=== PATIENT | male | born 1950 | race Caucasian/White ===

== ENCOUNTER 2024-12-16 18:25 | Observation (INO) | payer OTHER, SELFPAY ==
[2024-12-16] VITALS (52 sets, daily range): BP systolic 105–231; BP diastolic 48–107; PULSE 57–123; RESP 6–33; TEMP 36.8; O2SAT 95–100
--- NOTE | 2024-12-16 18:15 | RT.EKG_ITS ---
APPROVED REPORT Exam: Resting ECG Reason for Exam: stroke like symptoms Patient Location: E HR:66 bpm ECG Measurements Heart Rate 66 AXIS RI 173 P 51 QRSd 96 QRS -23 QT 418 T 2 QTc 438 Conclusion Sinus rhythm...normal P axis, V-rate 60- 99 LVH
--- NOTE | 2024-12-16 18:32 | W.ED.GENAD ---
Discharge Plan Disposition Patient Disposition: Admit to [facility] Condition: Critical Discharge Details Clinical Impression: Hypertensive emergency, Brain TIA Primary Care Provider: Unknown,Unknown ED Provider: Rajan Goyal Home Meds and New Rx's Prescriptions: No Action amlodipine 10 mg tablet 10 mg PO DAILY lisinopril-hydrochlorothiazide 20-25 mg tablet 1 tab PO DAILY simvastatin 40 mg tablet 40 mg PO DAILY ascorbic acid (vitamin C) 500 mg capsule 500 mg PO DAILY Discharge Data Discharge Physician: Rajan Goyal [facility] General Date/Time Provider Initiated Documentation: 12/16/24 18:32. HPI Narrative: Patient presents to the emergency department after he was last seen well at 2:30 PM in the afternoon approximately 3-1/2 to 4 hours from now presenting with expressive aphasia. Patient just recently moved to the area and is a [place] followed at the [facility]. According to his brother who was the one who picked him up at noon and left him at 230 he was doing completely fine. The brother states that he has a history of hypertension lives alone and he has not been taking his antihypertensive medicines. Brother reports that when they saw him he could understand what they were saying but he could not answer the questions appropriately. Related Data Home Medications ?Medication ?Instructions ?Recorded ?Confirmed amlodipine 10 mg tablet 10 mg PO DAILY 12/16/24 12/16/24 ascorbic acid (vitamin C) 500 mg 500 mg PO DAILY 12/16/24 12/16/24 capsule lisinopril 20 1 tab PO DAILY 12/16/24 12/16/24 mg-hydrochlorothiazide 25 mg tablet simvastatin 40 mg tablet 40 mg PO DAILY 12/16/24 12/16/24 Allergies Allergy/AdvReac Type Severity Reaction Status Date / Time No Known Allergies Allergy Unverified 12/16/24 18:36 Review of Systems Narrative: Review of Systems: Constitutional: No fevers, chills, sweats Eye: No recent visual problems ENT: No ear pain, nasal congestion, sore throat Respiratory: No shortness of breath, cough Cardiovascular: No Chest pain, palpitations, syncope Gastrointestinal: No nausea, vomiting, diarrhea Genitourinary: No hematuria Adolfo/Lymph: Negative for bruising tendency, swollen lymph glands Endocrine: Negative for excessive thirst, excessive hunger Musculoskeletal: No back pain, neck pain, joint pain, muscle pain, decreased range of motion Integumentary: No rash, pruritus, abrasions Psychiatric: No anxiety, depression Exam Narrative Exam Narrative: Exam; vitals signs as reported above normal Constitutional; In no acute distress, afebrile General: cooperative, healthy appearing, comfortable and no acute distress HEENT: Head: normal to inspection, no palpable skull fracture and normocephalic atraumatic Eyes: : appearance normal, both eyes and all related structures EOM intact bilaterally Pupils: PERRL : conjunctiva normal Direct ophthalmoscopy: normal light reflex, normal conjunctiva, normal visual acuity Ears: Normal TM, normal external canal Nose: normal no rhinorreha Neck no JVD, supple non tender Neck: normal visual inspection, full ROM and no lymphadenopathy Chest: normal inspection of the chest Respiratory : normal respiratory effort and able to speak in complete sentences no wheezing no rales Cardio Rate: regular rate, rhythm: regular rhythm normal heart sounds S1 and S2 no murmurs, gallops, or rubs GI : normal to inspection, normal bowel sounds, soft, non tender, non distended, no organomegaly Back/Spine/ no CVA tenderness Thoracic/Lumbar Spine: no tenderness or deformities Skin no rashes or lesions Neuro: patient alert oriented x 4 and no meningeal signs, Cranial Nerves: CN's II-XI intact bilaterally, Cognition: normal cognition, Speech: Patient with expressive aphasia who answers correctly with simple words but cannot elaborate complete sentences and answers with incoherent words l, Gait: normal gait, Depp tendon reflexes normal 2+ muscle strength 5/5 bilaterally NIH score: 2 Course Patient presents to the emergency department with a hypertensive emergency with a blood pressure of 231/120 initially and expressive aphasia. He could only answer with simple words. Patient has a history of a large ischemic stroke 10 years ago left him with some encephalomalacia almost complete the right cerebral hemisphere with surprisingly no residual neurological deficit. He was rushed to the CT angiogram which shows a high-grade stenosis of the right middle cerebral artery which would be the culprit of the stroke he had 10 years ago. The left hemisphere does not show any acute abnormality. He was treated aggressively with nicardipine drip to get the mean arterial pressure 100. Reevaluation(s) Initial Evaluation: Patient improving after the nicardipine drip he is able to express himself better Time: 19:30 Reevaluation: Patient is back to baseline with a mean arterial pressure in the 90s with a BP of 144/82 and his NIH score now is 0 Time: 21:00 Consultations Consultation #1: Teleneurology consultation who agreed the patient had a TIA secondary to hypertensive emergency that the focus now is to control his blood pressure and also do an MRI carotid ultrasound and since he had an episode of hematuria workup the hematuria before starting Plavix and aspirin for long-term therapy as well as aggressive antihypertensive therapy. We have also consulted the [facility] system that agreed the patient could stay here in the ICU because of the nicardipine drip needs to be transferred to the [facility] tomorrow morning Time: 21:00 Medical Decision Making MDM: Summary: Patient presents to the emergency department with a hypertensive emergency with a blood pressure of 231/120 initially and expressive aphasia. He could only answer with simple words. Patient has a history of a large ischemic stroke 10 years ago left him with some encephalomalacia almost complete the right cerebral hemisphere with surprisingly no residual neurological deficit. He was rushed to the CT angiogram which shows a high-grade stenosis of the right middle cerebral artery which would be the culprit of the stroke he had 10 years ago. The left hemisphere does not show any acute abnormality. He was treated aggressively with nicardipine drip to get the mean arterial pressure 100. After the blood pain was under control the patient returned back to normal. Teleneurology consultation agrees that the patient had a hypertensive emergency with a TIA and was improving. He had an episode of hematuria and urinalysis shows hematuria and needs to be worked up before he is in the aggregated which recommended neurology as a long-term antiplatelet therapy with Plavix and aspirin. 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 He will be in the ICU continue with the nicardipine drip and then he will be transferred to the [facility] in the morning Data Review Analysis All the data on this patient was reviewed by me including laboratory and imaging studies as well as bedside studies performed by me Independent review of Studies Imaging As reported above Lab: As reported above Risk Stratification: Patient with a hypertensive emergency however CTA was improved so will be admitted to the unit Differential Diagnosis: 1. Hypertensive emergency 2. Transient ischemic attack 3. Acute ischemic stroke 4. 5. Consultants: Consulted with teleneurology and the [facility] ICU system as well as our hospitalist here will admit the patient to the ICU Shared disposition: Patient understands disposition and for follow accordingly family are aware Impression: Medical Records Medical records reviewed: Yes I reviewed the patient's medical records. Imaging Data Radiologic Study: Attestation: I personally reviewed and interpreted this imaging study as follows: Imaging: CT Scan Radiologist's impression: cession No. : [id number] Creator : Jake Matos Dictator : Jake Matos Electrophysiology Technician : Automobile Radio Repairer : Jake Matos Approver2 : Report Date : 12/16/2024 20:05:25 Exam(s) CT BRAIN NECK CTA EXAM: CT BRAIN NECK CTA CLINICAL HISTORY: aphasia. TECHNIQUE: Imaging Protocol: Axial CT angiography was performed with multi-slice acquisition and multi-planar and/or 3D reconstructions. CONTRAST MATERIAL: Intravenous: Omnipaque 350 Contrast volume:structured data in ml COMPARISON: No exams were available for comparison FINDINGS: CTA Neck W: Aortic arch anatomy: The aortic arch anatomy is conventional and there is no significant stenosis at the origin of the great vessels off of the aortic arch. No intimal flap evident. Anterior circulation: Both common carotid arteries ascend with normal luminal diameters. There is no significant atherosclerotic plaque at the left carotid bifurcation and proximal left ICA and the left ICA in the upper neck is nicely patent as well as within the skull base-left carotid canal. There is partially calcified plaque at the right carotid bulb and proximal right ICA. Amount of stenosis at this level is estimated at approximately 30 percent. Above this level the right internal carotid artery in the upper neck is mildly tortuous but patent and also patent within the skull base-right carotid canal. Posterior circulation: Both vertebral arteries originate in conventional fashion off of the subclavian arteries and there is no obvious significant stenosis at the origin of the vertebral arteries. Both vertebral arteries exhibit normal luminal diameters within the foramen transversarium. No evidence of intraluminal thrombus nor dissection of the vertebral arteries. Both vertebral arteries contribute to the formation of the basilar artery at the skull base. CTA Brain W: Anterior circulation: Both internal carotid arteries are patent in the skull base-carotid canals as well as within the cavernous sinuses. The supraclinoid aspects of the ICAs are patent. Both A1 segments are patent as are the anterior cerebral arteries and there is no evidence of aneurysm at the level of the anterior communicating artery. There is a high-grade stenosis (over 90 percent stenosis) measuring 4-5 mm length in the right middle cerebral artery just distal to its origin. Left middle cerebral artery is patent without significant stenosis nor intraluminal thrombus. Posterior circulation: The basilar artery ascends with normal luminal diameter.. Distally it gives off patent bilateral superior cerebellar arteries. Above this level the basilar artery terminates as patent bilateral posterior cerebral arteries. There is no evidence of aneurysm at the tip of the basilar artery nor elsewhere in the [id number]. CT BRAIN: There is no evidence of intracranial hemorrhage. However, there is a large area of abnormal hypodensity-encephalomalacia in the territory of the right middle cerebral artery in of all vein right frontal, temporal, and parietal lobes, consistent with prior nonhemorrhagic infarction and most probably related to what is described above in the right middle cerebral artery. There is no prominent associated mass effect nor shift of midline structures. There is abundant bilateral periventricular hypodensity consistent with chronic small vessel disease also evident. No evidence of obvious cerebellar infarct nor lacunar infarcts in the maxx and midbrain. IMPRESSION: 1. High-grade critical over 90 percent 4 mm length stenosis in the proximal aspect of the right middle cerebral artery. Large area of nonhemorrhagic infarct in the right temporoparietal and frontal regions, most probably not acute although recommend follow-up MRI with diffusion imaging. No evidence of intracranial hemorrhage. 2. No significant stenosis in the left carotid artery in the neck. Mild stenosis at the right carotid bifurcation-proximal right ICA, estimated at approximately 30 percent. 3. Patent vertebral arteries in the neck and patent posterior intracranial circulation. 4. Recommend MRI with diffusion imaging to determine if there is any acute on chronic ischemic damage here. RADIATION DOSE DELIVERED: 1123.36 mGy.cm Total DLP DATA REPOSITORY: All CT scans at this facility are submitted to the National Radiology Data Registry (NRDR) Dose Index Registry (DIR) with the [employer] (ACR). RADIATION OPTIMIZATION: All CT scans at this facility use at least one of these dose optimization techniques: automated exposure control; mA and/or kV adjustment per patient size (includes targeted exams where dose is matched to clinical indication); or iterative reconstruction. Lab Data Lab results reviewed: Yes I reviewed the patient's lab results. ECG Data Attestation: I personally reviewed and interpreted this ECG (s) as follows: Prior ECG tracings: not available for review Interpretation: Normal sinus rhythm heart rate of 66 left axis deviation with mild criteria for left ventricular hypertrophy no acute ST-T changes Quality:SDOH Health Related Social Needs: No Data to Display Critical Care Time Critical Care Time Critical Care Time: Yes Total Critical Care Time: 45 Attestation: 45 minutes of critical care time pending deterioration of the neurological system and hypertensive emergency PFSH All Active Problems Brain TIA (Acute) Hypertensive emergency (Acute) Social History Smoking/Tobacco Use Status: Never Smoking risk assessment performed?: Yes Alcohol Intake: never Housing: house Do you feel safe at home: Yes Do you feel safe in your relationship?: Yes Vital Signs & Lab Results Vital Signs Most Recent Vital Signs: Most Recent Vital Signs Temp Pulse Resp BP Pulse Ox 36.8 C 88 23 156/72 H 95 12/16/24 18:29 12/16/24 22:42 12/16/24 22:43 12/16/24 22:42 12/16/24 20:31 Point of Care Results Nursing Point of Care Results: Finger Stick Blood Glucose 94 (70 - 120) 12/16/24 19:49 Lab Results 12/16/24 18:38 12/16/24 20:00 Blood Type / Crossmatch: No Data to Display Complete Blood Count: White Blood Count 8.84 10^3/uL (4.4-10.8) 12/16/24 18:38 Red Blood Count 5.09 10^6/uL (4.36-5.78) 12/16/24 18:38 Hemoglobin 15.9 g/dL (13.5-17.5) 12/16/24 18:38 Hematocrit 46.5 % (40.0-50.0) 12/16/24 18:38 Platelet Count 10^3/uL (130-400) 12/16/24 18:38 Complete Metabolic Panel: Sodium 137 mmol/L (136-145) 12/16/24 20:00 Potassium 3.7 mmol/L (3.5-5.1) 12/16/24 20:00 Chloride 100 mmol/L (98-107) 12/16/24 20:00 Carbon Dioxide 28.2 mmol/L (21.0-32.0) 12/16/24 20:00 BUN 15 mg/dL (7-18) 12/16/24 20:00 Creatinine 0.9 mg/dL (0.70-1.30) 12/16/24 20:00 Est GFR (CKD-EPI 2020) 90.74 (mL/min/1.73m2) 12/16/24 20:00 Magnesium 1.9 mg/dL (1.8-2.4) 12/16/24 20:00 Calcium 9.9 mg/dL (8.5-10.1) 12/16/24 20:00 Albumin 4.8 g/dL (3.4-5.0) 12/16/24 20:00 Glucose 110 mg/dL (74-106) H 12/16/24 20:00 Liver Function Panel: Alanine Aminotransferase (ALT/SGPT) 27 U/L (16-63) 12/16/24 20:00 Aspartate Amino Transf (AST/SGOT) 24 U/L (15-37) 12/16/24 20:00 Coagulation Panel: No Data to Display Cardiac Panel: Troponin I 19 ng/L (<or=76) 12/16/24 Arterial Blood Gas: No Data to Display Venous Blood Gas: No Data to Display Pancreas Panel: No Data to Display Thyroid Panel: No Data to Display Infectious Disease: No Data to Display Blood Cultures: No Data to Display Toxicology Panel: No Data to Display
--- NOTE | 2024-12-16 18:53 | DI.CT_ITS ---
Exam(s) CT BRAIN NECK CTA EXAM: CT BRAIN NECK CTA CLINICAL HISTORY: aphasia. TECHNIQUE: Imaging Protocol: Axial CT angiography was performed with multi-slice acquisition and mu lti-planar and/or 3D reconstructions. CONTRAST MATERIAL: Intravenous: Omnipaque 350 Contrast volume:structured data in ml COMPARISON: No exams were available for comparison FINDINGS: CTA Neck W: Aortic arch anatomy: The aortic arch anatomy is conventional and there is no significant stenosis at the origin of the great vessels off of the aortic arch. No intimal flap evident. Anterior circulation: Both common carotid arteries ascend with normal luminal diameters. There is no significant atherosclerotic plaque at the left carotid bifurcation and proximal left ICA and the left ICA in the upper neck is nicely patent as well as within the skull base-left carotid can al. There is partially calcified plaque at the right carotid bulb and proximal right ICA. Amount of sten osis at this level is estimated at approximately 30 percent. Above this level the right internal car otid artery in the upper neck is mildly tortuous but patent and also patent within the skull base-rig ht carotid canal. Posterior circulation: Both vertebral arteries originate in conventional fashion off of the subclavian arteries and there is no obvious significant stenosis at the origin of the vertebral arteries. Both vertebral arteries exhibit normal luminal diameters within the foramen transversarium. No evidence of intraluminal thrombus nor dissection of the vertebral arteries. Both vertebral arteries contribute to the formation of the basilar artery at the skull base. CTA Brain W: Anterior circulation: Both internal carotid arteries are patent in the skull base-carotid canals as well as within the cave rnous sinuses. The supraclinoid aspects of the ICAs are patent. Both A1 segments are patent as are the anterior cer ebral arteries and there is no evidence of aneurysm at the level of the anterior communicating artery . There is a high-grade stenosis (over 90 percent stenosis) measuring 4-5 mm length in the right middle cerebral artery just distal to its origin. Left middle cerebral artery is patent without significan t stenosis nor intraluminal thrombus. Posterior circulation: The basilar artery ascends with normal luminal diameter.. Distally it gives off patent bilateral sup erior cerebellar arteries. Above this level the basilar artery terminates as patent bilateral posterior cerebral arteries. There is no evidence of aneurysm at the tip of the basilar artery nor elsewhere in the [id number] is. CT BRAIN: There is no evidence of intracranial hemorrhage. However, there is a large area of abnormal hypodens ity-encephalomalacia in the territory of the right middle cerebral artery in of all vein bright front al, temporal, and parietal lobes, consistent with prior nonhemorrhagic infarction and most probably r elated to what is described above in the right middle cerebral artery. There is no prominent associa giovani mass effect nor shift of midline structures. There is abundant bilateral periventricular hypoden sity consistent with chronic small vessel disease also evident. No evidence of obvious cerebellar in farct nor lacunar infarcts in the maxx and midbrain. IMPRESSION: 1. High-grade critical over 90 percent 4 mm length stenosis in the proximal aspect of the right middl e cerebral artery. Large area of nonhemorrhagic infarct in the right temporoparietal and frontal reg ions, most probably not acute although recommend follow-up MRI with diffusion imaging. No evidence o f intracranial hemorrhage. 2. No significant stenosis in the left carotid artery in the neck. Mild stenosis at the right carot id bifurcation-proximal right ICA, estimated at approximately 30 percent. 3. Patent vertebral arteries in the neck and patent posterior intracranial circulation. 4. Recommend MRI with diffusion imaging to determine if there is any acute on chronic ischemic damage here. RADIATION DOSE DELIVERED: 1123.36 mGy.cm Total DLP DATA REPOSITORY: All CT scans at this facility are submitted to the National Radiology Data Registry (NRDR) Dose Index Registry (DIR) with the [employer] (ACR). RADIATION OPTIMIZATION: All CT scans at this facility use at least one of these dose optimization te chniques: automated exposure control; mA and/or kV adjustment per patient size (includes targeted exa ms where dose is matched to clinical indication); or iterative reconstruction.
[2024-12-16] MEDS: Omnipaque 350 MG/ML 100 ML BTL IJ ×3 (19:00→22:30)
[2024-12-16] MEDS: Normal Saline - Diluent 50 ML VIAL IJ ×3 (19:00→22:31)
[2024-12-16] MEDS: niCARdipine 25 MG in Normal Saline 240 ML 50 MG IV (19:05)
[2024-12-16 19:06] LABS: Abs Immature Grans 0.02 10^3/uL (0.0-0.06); Absolute Basophil Count 0.03 10^3/uL (0.0-0.2); Absolute Eosinophil Count 0.05 10^3/uL (0.0-0.7); Absolute Lymphocyte Count 0.87 10^3/uL (1.2-3.4); Absolute Monocyte Count 0.71 10^3/uL (0.1-0.8); Absolute Neutrophil Count 7.16 10^3/uL (1.2-6.7); Basophils % 0.3 %; Eosinophils % 0.6 %; HCT 46.5 % (40.0-50.0); HGB 15.9 g/dL (13.5-17.5); Immature Grans % 0.2 %; Lymphocytes % 9.8 %; MCH 31.2 pg (27.0-33.0); MCHC 34.2 % (32.0-36.0); MCV 91 fL (80-95); Neutrophils % 81.1 %; RBC 5.09 10^6/uL (4.36-5.78); RDW 11.9 % (11.8-14.1); RDW-SD 39.4 fL; WBC 8.84 10^3/uL (4.4-10.8)
[2024-12-16 19:23] LABS: Diff Comment PLT Morph Reviewed; RBC Morphology Normal
--- NOTE | 2024-12-16 20:08 | NUR.NOTE ---
returned from CTA with nicardipine running as directed. Blood Pressures cycling every 5 mins BP goal has been established as MAP of 100. pt stated he needed to void on return to patient room. this board writer assisted pt in voiding and provided personal care as was needed. not more than 3 mins after leaving the room, pt rang again with c/o urinary urgency, wire harness design engineer Marimar Sánchez assisted the pt in voiding. Hematuria was witnessed and reported to Dr. Goyal who came in to assess the pt. no new orders at this time, will monitor.
[2024-12-16 20:25] LABS: Bilirubin Negative (Negative); Blood Moderate (Negative); Clarity Clear (Clear); Glucose Negative (Negative); Ketones Negative (Negative); Leukocyte Esterase Negative (Negative); Nitrite Negative (Negative); Specific Gravity 1.015 (1.005-1.025); Urobilinogen 0.2 mg/dL (Up to 0.2)
[2024-12-16 20:33] LABS: ALT 27 U/L (16-63); AST 24 U/L (15-37); Albumin 4.8 g/dL (3.4-5.0); Alkaline Phosphatase 107 U/L (46-116); Anion Gap 8.8 mmol/L (3-11); BUN 15 mg/dL (7-18); Bilirubin, Total 1.2 mg/dL (0.2-1.0); CO2 28.2 mmol/L (21.0-32.0); CREATININE 0.9 mg/dL (0.70-1.30); Calcium 9.9 mg/dL (8.5-10.1); Chloride 100 mmol/L (98-107); Estimated GFR 90.74 (mL/min/1.73m2); Glucose 110 mg/dL (74-106); Magnesium 1.9 mg/dL (1.8-2.4); Potassium 3.7 mmol/L (3.5-5.1); Sodium 137 mmol/L (136-145); Total Protein 8.4 g/dL (6.4-8.2); Troponin I 6 ng/L (<or=76)
[2024-12-16 20:36] LABS: Bacteria Rare HPF (Negative); C & S Indicated? No; Casts Negative LPF (Negative); Crystals Negative HPF (Negative); Epithelial Cells Negative HPF (Negative); Mucus Negative (Negative); RBC >50 HPF (0-2); WBC Negative HPF (0-5)
[2024-12-16 21:47] LABS: Troponin I 19 ng/L (<or=76)
--- NOTE | 2024-12-16 22:00 | DI.CT_ITS ---
Exam(s) CT ABDOMEN PELVIS W EXAM: CT ABDOMEN PELVIS W CLINICAL HISTORY: hematuria TECHNIQUE: Imaging Protocol: Axial computed tomography images with coronal and sagittal reformatted images were created and reviewed. CONTRAST MATERIAL: Intravenous: Omnipaque 350 Contrast volume:65 mL Oral: No COMPARISON: No exams were available for comparison FINDINGS: The examination is limited due to patient motion artifact. ABDOMEN: Lung Bases: Coronary artery calcifications are present. Atelectatic changes are seen in the dependen t portions of the lungs. Liver: Normal density. No measurable mass. Portal, Superior Mesenteric, and Splenic Veins: Unremarkable. Gallbladder and Biliary Tract: No radiodense calculus or dilation. Pancreas: Normal density, no abnormal calcifications or inflammatory process. Spleen: Normal. Adrenals: No masses seen. Kidneys: Normal size, contour and axis. No radiodense stones or obstructive uropathy. No masses seen. Abdominal Aorta: Abdominal portion non-dilated. Atherosclerotic calcification is present. Bowel: No obstruction or bowel wall thickening. Appendix is unremarkable. Peritoneal Cavity: No ascites, collection or mesenteric inflammatory response. No free air. Lymph Nodes: Within normal limits. Bones: Within normal limits for the patient's age. Soft Tissues: Unremarkable. PELVIS: Bladder: There is mild diffuse thickening of the wall of the urinary bladder likely reflecting chroni c bladder outlet obstruction. No definite urinary bladder mass is seen. No bladder stone is identif ied. Reproductive Organs: There is marked enlargement of the prostate gland. Lymph Nodes: Within normal limits. Bones: Within normal limits for the patient's age. IMPRESSION: 1. No acute abdominal or pelvic process. 2. No evidence of nephrolithiasis or hydronephrosis. 3. Prostatomegaly. 4. Mild diffuse thickening of the wall of the urinary bladder likely reflecting chronic bladder outle t obstruction. Cystitis cannot be entirely excluded. Please correlate clinically. No urinary bladd er stone or mass is seen. Follow-up as clinically appropriate. 5. The preliminary [facility] report was reviewed. RADIATION DOSE DELIVERED: 780.47mGy.cm Total DLP DATA REPOSITORY: All CT scans at this facility are submitted to the National Radiology Data Registry (NRDR) Dose Index Registry (DIR) with the [employer] (ACR). RADIATION OPTIMIZATION: All CT scans at this facility use at least one of these dose optimization te chniques: automated exposure control; mA and/or kV adjustment per patient size (includes targeted exa ms where dose is matched to clinical indication); or iterative reconstruction.
[2024-12-16] MEDS: niCARdipine 25 MG in Normal Saline 240 ML 77.5 MG IV (22:45)
--- NOTE | 2024-12-16 23:03 | NUR.NOTE ---
attempted to titrate down nicardipine, MAPs did not stay in goal range. diastolic bp increased over 100 mmHg. Will make further attempts at titration.
--- NOTE | 2024-12-16 23:15 | DI.VRAD_ITS ---
PROCEDURE INFORMATION: Exam: CT Abdomen And Pelvis With Contrast Exam date and time: 12/16/2024 10:27 PM Age: 74 years old Clinical indication: Other: Hematuria TECHNIQUE: Imaging protocol: Computed tomography of the abdomen and pelvis with contrast. Contrast material: 350; Contrast volume: 65 ml; Contrast route: INTRAVENOUS (IV); COMPARISON: No relevant prior studies available. FINDINGS: Lungs: Mild atelectasis is present at the dependent lung bases. Liver: The liver has a normal appearance. Gallbladder and biliary ducts: The gallbladder is unremarkable. No biliary ductal dilatation. Pancreas: The pancreas demonstrates normal size. No pancreatic ductal dilatation. Spleen: The spleen demonstrates normal size. Adrenal glands: The adrenal glands have a normal appearance. Kidneys and ureters: The kidneys are normal in size. There is mild bilateral perinephric fat stranding. Stomach and bowel: The bowel demonstrates overall normal caliber and wall thickness. Appendix: The appendix is thin walled. Intraperitoneal space: Unremarkable. No free air. No significant fluid collection. Vasculature: There are scattered atheromatous calcifications throughout the aorta and iliac arteries. Lymph nodes: No enlarged lymph nodes. Urinary bladder: The bladder is thin walled and fluid filled. Reproductive: The prostate is enlarged. Bones/joints: Bones have a normal appearance. No acute fracture or suspicious bone lesion. Soft tissues: There is a small fat containing right inguinal hernia. IMPRESSION: 1. No acute intra-abdominal findings. 2. No hydronephrosis or nephrolithiasis. No suspicious renal enhancement. No hydroureter or ureterolithiasis. No suspicious bladder lesions. 3. Normal appendix. Dictated and Authenticated by: Jeana Benitez MD. Orderin Jay Jay Tolentino MD
--- NOTE | 2024-12-16 23:15 | HPE_ITS ---
Date of service: 12/16/24 Time of Service: 23:16 Assessment and Plan Assessment and plan (1) Brain TIA: Status: Acute Assessment and plan: He had garbled speech for about an hour or so but that has largely cleared. Family states his speech is now back to baseline. Upon recommendations from neurology will set him up for an MRI of the brain for the a.m. Also recommends echo and carotid ultrasounds. Hold on anticoagulation because of hematuria. Once stable start aspirin 81 mg and Plavix 300 mg load then 75 mg daily. (2) Hypertensive emergency: Status: Acute Assessment and plan: Malignant hypertension treated with nicardipine drip. Blood pressures are under much better control will continue nicardipine drip through the night and then transition back to oral antihypertensives starting with what he was on as an outpatient. Of note he had only recently restarted antihypertensive medications in the last 48 hours. (3) Alcohol abuse: Status: Chronic Assessment and plan: Regular daily alcohol intake. The amounts are not clear but it appears to be some amount of wine on a nightly basis. Family does not think he is a severe alcoholic. He has never had withdrawal seizures or problems with alcohol withdrawal in the past. Will put him on CIWA protocol with as needed lorazepam. (4) Hematuria: Status: Acute Assessment and plan: Apparently new onset of hematuria, unclear etiology. CT of the abdomen and pelvis shows no acute intra-abdominal findings, no hydronephrosis or nephrolithiasis. No suspicious enhancement but no hydroureter or ureteral lithiasis. No suspicious bladder lesions. Will check a UA. History of Present Illness History of Present Illness Chief Complaint: TIA with expressive aphasia N arrative: 74-year-old man that lives across the street from his brother and [id number]. He was noted by his transfer and pumphouse operator today to have garbled speech and not making sense. They transported him to the emergency room. 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 He has had some worsening health issues since that time including hypertension, alcohol use, cataracts, and hyperlipidemia. He has done remarkably well despite his large MCA territory CVA. In the emergency room he had blood pressures of 231/106 and 191/107. He was started on a nicardipine drip with a goal of keeping his MAP around 100. His garbled speech improved and according to his brother he is nearly back to baseline. A teleneurology consult was obtained. He was found to be oriented to time place and person. NIH stroke scale of 1. The feeling was he had a left cortical infarction in the left MCA territory distribution versus hypertensive encephalopathy versus MA ES. The plan is to admit him to the ICU on telemetry with neurochecks every 4 hours. Physical therapy speech and swallow evaluation. Because he has had some hematuria since arrival a CT of the abdomen and pelvis is pending and anticoagulation is being held until that workup is completed. Admit to observation status to the ICU. The [facility] has accepted him to their ICU tomorrow. Review of Systems Narrative: Patient is able to give history. He denies any current pain or difficulty breathing. He does not have good memory of his episode of garbled speech. We talked about alcohol consumption and he does drink what he says is 1 or 2 glasses of wine per evening. His brother and [id number] state that that is a low estimate. He does not drive because of cataracts, he failed the vision exam. He has never had significant heart problems. No bowel or bladder problems. He denies having blood in his urine in the past. PFSH All Active Problems (Updated 12/16/24 @ 23:25 by Amarjit Louise MD) Hematuria (Acute) Alcohol abuse (Chronic) Brain TIA (Acute) Hypertensive emergency (Acute) Medical History (Updated 12/16/24 @ 23:25 by Amarjit Louise MD) Hypertension CVA (cerebral vascular accident) 2014, left MCA territory Social History Smoking/Tobacco Use Status: Never Smoking risk assessment performed?: Yes Alcohol Intake: never Housing: house Do you feel safe at home: Yes Do you feel safe in your relationship?: Yes Meds Allergies and Home Medications Allergies Allergy/AdvReac Type Severity Reaction Status Date / Time No Known Allergies Allergy Unverified 12/16/24 18:36 Home Medications ?Medication ?Instructions ?Recorded ?Confirmed ?Type amlodipine 10 mg tablet 10 mg PO DAILY 12/16/24 12/16/24 History ascorbic acid (vitamin C) 500 mg 500 mg PO DAILY 12/16/24 12/16/24 History capsule lisinopril 20 1 tab PO DAILY 12/16/24 12/16/24 History mg-hydrochlorothiazide 25 mg tablet simvastatin 40 mg tablet 40 mg PO DAILY 12/16/24 12/16/24 History Exam Narrative Exam Narrative: On exam he appears younger than stated age. He is affable and cooperative. He does have some confabulatory speech that he masks well. Overall he can answer questions reasonably coherently. He had no facial asymmetry. His pronunciation was good. His lungs sounded clear to auscultation. Heart sounds were regular and no significant murmur. Abdomen was soft and nontender and no HSM was palpable. The lower extremities appear well-perfused. Neurologically he moves upper and lower extremities without apparent decrement of function. Results Imaging Imaging Studies: CTA head and neck showed high-grade critical stenosis of over 90% in the proximal small right middle cerebral artery. There is a large area of nonhemorrhagic infarct in the right temporoparietal and frontal regions. No significant stenosis in the left carotid artery of the neck. Mild stenosis of the right carotid bifurcation proximal right ICA estimated at 30%. Vertebral arteries are patent. Labs 12/16/24 18:38 12/16/24 20:00 Labs: Laboratory Results - last 24 hr 12/16/24 12/16/24 12/16/24 18:38 18:53 19:47 WBC 8.84 RBC 5.09 Hgb 15.9 Hct 46.5 MCV 91 MCH 31.2 MCHC 34.2 RDW 11.9 Plt Count MPV Immature Gran % 0.2 Neutrophils % 81.1 Lymphocytes % 9.8 Monocytes % 8.0 Eosinophils % 0.6 Basophils % 0.3 Nucleated RBC % 0.0 Absolute Neutrophils 7.16 H Absolute Lymphocytes 0.87 L Absolute Monocytes 0.71 Absolute Eosinophils 0.05 Absolute Basophils 0.03 RBC Morphology Normal Sodium Cancelled Potassium Cancelled Chloride Cancelled Carbon Dioxide Cancelled Anion Gap Cancelled BUN Cancelled Creatinine Cancelled Est GFR (CKD-EPI 2020) Cancelled Glucose Cancelled Calcium Cancelled Magnesium Cancelled Total Bilirubin Cancelled AST Cancelled ALT Cancelled Alkaline Phosphatase Cancelled Troponin I Cancelled Total Protein Cancelled Albumin Cancelled Urine Color Yellow Urine Clarity Clear Urine pH 7.0 Ur Specific [place] 1.015 Urine Protein Negative Urine Ketones Negative Urine Blood Moderate H Urine Nitrite Negative Urine Bilirubin Negative Urine Urobilinogen 0.2 Ur Leukocyte Esterase Negative Urine RBC >50 H Urine WBC Negative Ur Epithelial Cells Negative Urine Crystals Negative Urine Bacteria Rare Urine Casts Negative Urine Mucus Negative Ur Culture Indicated? No Urine Glucose Negative 12/16/24 12/16/24 20:00 21:18 WBC RBC Hgb Hct MCV MCH MCHC RDW Plt Count MPV Immature Gran % Neutrophils % Lymphocytes % Monocytes % Eosinophils % Basophils % Nucleated RBC % Absolute Neutrophils Absolute Lymphocytes Absolute Monocytes Absolute Eosinophils Absolute Basophils RBC Morphology Sodium 137 Potassium 3.7 Chloride 100 Carbon Dioxide 28.2 Anion Gap 8.8 BUN 15 Creatinine 0.9 Est GFR (CKD-EPI 2020) 90.74 Glucose 110 H Calcium 9.9 Magnesium 1.9 Total Bilirubin 1.2 H AST 24 ALT 27 Alkaline Phosphatase 107 Troponin I 6 19 Total Protein 8.4 H Albumin 4.8 Urine Color Urine Clarity Urine pH Ur Specific [place] Urine Protein Urine Ketones Urine Blood Urine Nitrite Urine Bilirubin Urine Urobilinogen Ur Leukocyte Esterase Urine RBC Urine WBC Ur Epithelial Cells Urine Crystals Urine Bacteria Urine Casts Urine Mucus Ur Culture Indicated? Urine Glucose Last Vital Signs Temp 36.8 C 12/16/24 18:29 Pulse 82 12/16/24 23:01 Resp 20 12/16/24 23:01 BP 155/62 H 12/16/24 23:01 Pulse Ox 95 12/16/24 20:31 Time Spent Time spent with Patient: 55-74 minutes Time was spent: preparing to see the patient(eg.review tests), obtaining and/or reviewing separately otained hiistory, ordering medications,tests, procedures, referring, communicating with other health healthcare financial analyst, indepentently interpreting results, counseling the patient and care coordination
--- NOTE | 2024-12-16 23:31 | NUR.NOTE ---
nicardipine gtt paused for map of 65. will monitor, aware
[2024-12-16 23:52] LABS: Troponin I 62 ng/L (<or=76)
[2024-12-17] VITALS (37 sets, daily range): BP systolic 106–150; BP diastolic 63–99; PULSE 32–88; RESP 10–30; TEMP 36.8–37.9; O2SAT 75–100
[2024-12-17] MEDS: Acetaminophen 325 MG TAB PO (00:18)
[2024-12-17] MEDS: Normal Saline Flush 10 ML SYR IVP ×2 (00:19→08:51)
--- NOTE | 2024-12-17 01:44 | W.PC.ACHO ---
Registration Status: Primary Language: Preferred Language: ED Information & Data Chief Complaint CVA/TIA 12/16/24 20:59 Chief Complaint CVA/TIA 12/16/24 18:29 Triage Note Internet Designer called brother at 12/16/24 18:29 1730 stating patient was not making sense and seemed off, family arrived and his words were scrambled up and unable to understand what he was saying. Brother last saw him at 2:30, seemed off but not alarming, speech was clear at that time. H/O previous stroke, which lead to confusion and a limp Medical / Surgical History (Last Updated 12/16/24 @ 23:25 by Amarjit Louise MD) Hypertension CVA (cerebral vascular accident) Most Recent Vital Signs Temperature 36.8 C 12/17/24 00:29 Temperature Source Temporal Artery Scan 12/17/24 00:25 Pulse 88 12/17/24 00:29 Pulse 77 12/16/24 23:46 Respiratory Rate 20 12/17/24 00:29 Respiratory Effort Normal 12/17/24 00:25 Respiratory Pattern Normal 12/17/24 00:25 Blood Pressure 140/72 12/17/24 00:29 Blood Pressure Mean 79 12/17/24 00:25 Blood Pressure Position Left Lateral 12/17/24 00:25 Pulse Oximetry 99 12/17/24 00:29 Oxygen Delivery Method Room Air 12/17/24 00:25 Oxygen Flow Rate 0 12/17/24 00:25 Pain Level 0 12/17/24 00:25 Allergies No Known Allergies Allergy (Unverified 12/16/24 18:36) Precautions Isolation Standard precaution 12/16/24 20:59 Active Medications Generic Name Dose Route Start Last Admin Trade Name Freq PRN Reason Stop Dose Admin Acetaminophen 0 mg 12/17/24 00:13 12/17/24 00:18 Acetaminophen 325 Mg Tab PO 650 mg Q4H PRN PRN Administration Nicardipine HCl 25 mg/ Sodium 250 mls @ 50 mls/hr 12/16/24 19:00 12/17/24 00:05 Chloride IV 0 mg/hr INFUSION BARBARA 0 mls/hr Titration Protocol 5 MG/HR Iohexol 100 ml 12/16/24 19:00 12/16/24 22:30 Omnipaque 350 Mg/Ml 100 Ml Btl IJ 06/13/25 23:59 100 ml DIRECTED BARBARA Administration Sodium Chloride 0 ml 12/16/24 20:00 12/17/24 00:19 Normal Saline Flush 10 Ml Syr IVP 20 ml BID BARBARA Administration Sodium Chloride 50 ml 12/16/24 19:00 12/16/24 22:31 Normal Saline - Diluent 50 Ml Vial IJ 50 ml .FOR DI USE BARBARA Administration IV IV Catheter Type [Left Forearm Peripheral IV ] IV Catheter Type [Right Diffusic Antecubital] IV Catheter Gauge [Left 20 Forearm] IV Catheter Gauge [Right 20 Antecubital] Diet Orders Category Date Time Status Regular/Normal [DIET] Nutrition 12/17/24 Breakfast Active Diagnostics 12/17/24 12/16/24 12/16/24 Range/Units 05:35 23:30 21:18 WBC Pending (4.4-10.8) 10^3/uL RBC Pending (4.36-5.78) 10^6/uL Hgb Pending (13.5-17.5) g/dL Hct Pending (40.0-50.0) % MCV Pending (80-95) fL MCH Pending (27.0-33.0) pg MCHC Pending (32.0-36.0) % RDW Pending (11.8-14.1) % Plt Count Pending (130-400) 10^3/uL MPV Pending (8.0-11.0) fL Immature Gran % Pending % Neutrophils % Pending % Lymphocytes % Pending % Monocytes % Pending % Eosinophils % Pending % Basophils % Pending % Nucleated RBC % (0.0-0.3) % Absolute Neutrophils Pending (1.2-6.7) 10^3/uL Absolute Lymphocytes Pending (1.2-3.4) 10^3/uL Absolute Monocytes Pending (0.1-0.8) 10^3/uL Absolute Eosinophils Pending (0.0-0.7) 10^3/uL Absolute Basophils Pending (0.0-0.2) 10^3/uL RBC Morphology Sodium Pending Potassium Pending Chloride Pending Carbon Dioxide Pending Anion Gap Pending BUN Pending Creatinine Pending Est GFR (CKD-EPI 2020) Pending Glucose Pending Calcium Pending Magnesium Total Bilirubin Pending AST Pending ALT Pending Alkaline Phosphatase Pending Troponin I 62 19 Total Protein Pending Albumin Pending Urine Color (Yellow) Urine Clarity (Clear) Urine pH (5-8) Ur Specific [place] (1.005-1.025) Urine Protein (Neg-Trace) mg/dL Urine Ketones (Negative) mg/dL Urine Blood (Negative) Urine Nitrite (Negative) Urine Bilirubin (Negative) Urine Urobilinogen (Up to 0.2) mg/dL Ur Leukocyte Esterase (Negative) Urine RBC (0-2) HPF Urine WBC (0-5) HPF Ur Epithelial Cells (Negative) HPF Urine Crystals (Negative) HPF Urine Bacteria (Negative) HPF Urine Casts (Negative) LPF Urine Mucus (Negative) Ur Culture Indicated? Urine Glucose (Negative) mg/dL 12/16/24 12/16/24 12/16/24 Range/Units 20:00 19:47 18:53 WBC (4.4-10.8) 10^3/uL RBC (4.36-5.78) 10^6/uL Hgb (13.5-17.5) g/dL Hct (40.0-50.0) % MCV (80-95) fL MCH (27.0-33.0) pg MCHC (32.0-36.0) % RDW (11.8-14.1) % Plt Count (130-400) 10^3/uL MPV (8.0-11.0) fL Immature Gran % % Neutrophils % % Lymphocytes % % Monocytes % % Eosinophils % % Basophils % % Nucleated RBC % (0.0-0.3) % Absolute Neutrophils (1.2-6.7) 10^3/uL Absolute Lymphocytes (1.2-3.4) 10^3/uL Absolute Monocytes (0.1-0.8) 10^3/uL Absolute Eosinophils (0.0-0.7) 10^3/uL Absolute Basophils (0.0-0.2) 10^3/uL RBC Morphology Sodium 137 Cancelled Potassium 3.7 Cancelled Chloride 100 Cancelled Carbon Dioxide 28.2 Cancelled Anion Gap 8.8 Cancelled BUN 15 Cancelled Creatinine 0.9 Cancelled Est GFR (CKD-EPI 2020) 90.74 Cancelled Glucose 110 H Cancelled Calcium 9.9 Cancelled Magnesium 1.9 Cancelled Total Bilirubin 1.2 H Cancelled AST 24 Cancelled ALT 27 Cancelled Alkaline Phosphatase 107 Cancelled Troponin I 6 Cancelled Total Protein 8.4 H Cancelled Albumin 4.8 Cancelled Urine Color Yellow (Yellow) Urine Clarity Clear (Clear) Urine pH 7.0 (5-8) Ur Specific [place] 1.015 (1.005-1.025) Urine Protein Negative (Neg-Trace) mg/dL Urine Ketones Negative (Negative) mg/dL Urine Blood Moderate H (Negative) Urine Nitrite Negative (Negative) Urine Bilirubin Negative (Negative) Urine Urobilinogen 0.2 (Up to 0.2) mg/dL Ur Leukocyte Esterase Negative (Negative) Urine RBC >50 H (0-2) HPF Urine WBC Negative (0-5) HPF Ur Epithelial Cells Negative (Negative) HPF Urine Crystals Negative (Negative) HPF Urine Bacteria Rare (Negative) HPF Urine Casts Negative (Negative) LPF Urine Mucus Negative (Negative) Ur Culture Indicated? No Urine Glucose Negative (Negative) mg/dL 12/16/24 Range/Units 18:38 WBC 8.84 (4.4-10.8) 10^3/uL RBC 5.09 (4.36-5.78) 10^6/uL Hgb 15.9 (13.5-17.5) g/dL Hct 46.5 (40.0-50.0) % MCV 91 (80-95) fL MCH 31.2 (27.0-33.0) pg MCHC 34.2 (32.0-36.0) % RDW 11.9 (11.8-14.1) % Plt Count (130-400) 10^3/uL MPV (8.0-11.0) fL Immature Gran % 0.2 % Neutrophils % 81.1 % Lymphocytes % 9.8 % Monocytes % 8.0 % Eosinophils % 0.6 % Basophils % 0.3 % Nucleated RBC % 0.0 (0.0-0.3) % Absolute Neutrophils 7.16 H (1.2-6.7) 10^3/uL Absolute Lymphocytes 0.87 L (1.2-3.4) 10^3/uL Absolute Monocytes 0.71 (0.1-0.8) 10^3/uL Absolute Eosinophils 0.05 (0.0-0.7) 10^3/uL Absolute Basophils 0.03 (0.0-0.2) 10^3/uL RBC Morphology Normal Sodium Potassium Chloride Carbon Dioxide Anion Gap BUN Creatinine Est GFR (CKD-EPI 2020) Glucose Calcium Magnesium Total Bilirubin AST ALT Alkaline Phosphatase Troponin I Total Protein Albumin Urine Color (Yellow) Urine Clarity (Clear) Urine pH (5-8) Ur Specific [place] (1.005-1.025) Urine Protein (Neg-Trace) mg/dL Urine Ketones (Negative) mg/dL Urine Blood (Negative) Urine Nitrite (Negative) Urine Bilirubin (Negative) Urine Urobilinogen (Up to 0.2) mg/dL Ur Leukocyte Esterase (Negative) Urine RBC (0-2) HPF Urine WBC (0-5) HPF Ur Epithelial Cells (Negative) HPF Urine Crystals (Negative) HPF Urine Bacteria (Negative) HPF Urine Casts (Negative) LPF Urine Mucus (Negative) Ur Culture Indicated? Urine Glucose (Negative) mg/dL [id number] Documentation Fingerstick Glucose Start: 12/16/24 18:53 Freq: .Stat Status: Active Protocol: Activity Type Activity Date Activity User E-sign Co-sign Detail Recorded Client Recorded Date Recorded By Document 12/16/24 19:49 HB ER02 12/16/24 19:50 HB Intake and Output - 24 Hour Total 12/16/24 18:25 thru 12/17/24 01:10 Intake Total 331.458 Output Total 800 Balance -468.542 Weight 74.6 kg Intake: IV 331.458 Output: Urine 800 Other: Urine Color [place] Urine Appearance Cloudy Comment some hematuria present # Voids 3 Falls Risk Assessment History of Falls Previous History 12/17/24 00:25 Contributing Factors Confusion 12/17/24 00:25 Ambulatory Aids Independent 12/17/24 00:25 Tubes/Lines With any additional score 12/17/24 00:25 Gait Evaluation No gait disturbance 12/17/24 00:25 Fall Total Score 38 12/17/24 00:25 Level of Risk Moderate Risk 12/17/24 00:25 Problems (Last Updated 12/16/24 @ 23:25 by Amarjit Louise MD) Hematuria (Acute) Alcohol abuse (Chronic) Brain TIA (Acute) Hypertensive emergency (Acute) Notes 12/16/24 23:31 Nursing Notes by Iona Monaco nichodan gtt paused for map of 65. will MD trino aware Initialized on 12/16/24 23:31 - END OF NOTE 12/16/24 23:03 Nursing Notes by Iona Monaco attempted to titrate down nicardipine, MAPs did not stay in goal range. diastolic bp increased over 100 mmHg. Will make further attempts at titration. Initialized on 12/16/24 23:03 - END OF NOTE 12/16/24 20:08 Nursing Notes by Iona Monaco returned from CTA with nicardipine running as directed. Blood Pressures cycling every 5 mins BP goal has been established as MAP of 100. pt stated he needed to void on return to patient room. this sql report writer assisted pt in voiding and provided personal care as was needed. not more than 3 mins after leaving the room, pt rang again with c/o urinary urgency, custodial supervisor Marimar Sánchez assisted the pt in voiding. Hematuria was witnessed and reported to Dr. Goyal who came in to assess the pt. no new orders at this time, will monitor. Initialized on 12/16/24 20:08 - END OF NOTE v v v v v v v v v Sending and/or Receiving Nurses: Please use comment section below to note any information pertinent to the patient hand-off not included above. Information / Comments: Report received from: Elian Monaco RN all questions answerd: yes
[2024-12-17 06:17] LABS: Abs Immature Grans 0.02 10^3/uL (0.0-0.06); Absolute Basophil Count 0.04 10^3/uL (0.0-0.2); Absolute Eosinophil Count 0.09 10^3/uL (0.0-0.7); Absolute Lymphocyte Count 1.33 10^3/uL (1.2-3.4); Absolute Monocyte Count 0.99 10^3/uL (0.1-0.8); Absolute Neutrophil Count 3.82 10^3/uL (1.2-6.7); Basophils % 0.6 %; Eosinophils % 1.4 %; HCT 43.1 % (40.0-50.0); Immature Grans % 0.3 %; Lymphocytes % 21.1 %; MCH 31.1 pg (27.0-33.0); MCHC 34.8 % (32.0-36.0); MCV 89 fL (80-95); MPV 9.8 fL (8.0-11.0); Monocytes % 15.7 %; Neutrophils % 60.9 %; Platelet Count 224 10^3/uL (130-400); RBC 4.82 10^6/uL (4.36-5.78); RDW 11.8 % (11.8-14.1); RDW-SD 38.5 fL; WBC 6.29 10^3/uL (4.4-10.8)
[2024-12-17 06:44] LABS: ALT 18 U/L (16-63); AST 19 U/L (15-37); Albumin 3.7 g/dL (3.4-5.0); Alkaline Phosphatase 81 U/L (46-116); Anion Gap 6.2 mmol/L (3-11); BUN 12 mg/dL (7-18); Bilirubin, Total 1.4 mg/dL (0.2-1.0); CO2 29.8 mmol/L (21.0-32.0); CREATININE 0.7 mg/dL (0.70-1.30); Calcium 8.9 mg/dL (8.5-10.1); Chloride 103 mmol/L (98-107); Glucose 108 mg/dL (74-106); Potassium 3.4 mmol/L (3.5-5.1); Sodium 139 mmol/L (136-145); Total Protein 6.8 g/dL (6.4-8.2)
[2024-12-17 08:20] LABS: Bilirubin Negative (Negative); Blood Large (Negative); Clarity Sl Cloudy (Clear); Glucose Negative (Negative); Ketones Negative (Negative); Leukocyte Esterase Negative (Negative); Nitrite Negative (Negative); pH 7.5 (5-8)
[2024-12-17 08:38] LABS: Bacteria Rare HPF (Negative); C & S Indicated? No; Casts Negative LPF (Negative); Crystals Negative HPF (Negative); Epithelial Cells Rare HPF (Negative); Mucus Negative (Negative); RBC >50 HPF (0-2); WBC 0-2 HPF (0-5)
--- NOTE | 2024-12-17 08:39 | DSE_ITS ---
Date of service: 12/17/24 Time of Service: 08:39 DS: Diagnosis Discharge Diagnosis (1) Brain TIA: Status: Acute (2) Hypertensive emergency: Status: Acute (3) Alcohol abuse: Status: Chronic (4) Hematuria: Status: Acute Discharge Plan Disposition Patient Disposition: Transfer-Acute Inpatient Care Specific Acute Inpt Facility: Other Condition: Stable Discharge Details Reason For Visit: Malignant hypertension/transient ischemic attack Admit Date/Time: 12/16/24 23:13 Admit Provider: Amarjit Louise Attending Provider: Amarjit Louise Primary Care Provider: Unknown,Unknown Hospital Course Hospital Course: 74 yo M with history of TBI and large left MCA CVA in 2015, HTN, daily alcohol use who was sent to the ED after his biomedical service engineer found him with garbled speech and not making sense. On presentation his blood pressure was 231/106 and he was started on nicardipine drip with goal MAP around 100. Neurologic exam was not focal, NIH score 1 with orientation to self and place. CTA showed 90% stenosis of left MCA, question of new infarct vs hypertensive neuropathy per teleneurology evaluation. ASA and clopidogrel was recommended but initially held due to significant hematuria, though it was given loading doses of both along with atorvastatin 80mg prior to discharge. He was not anemic. His nicardipine was titrated off and his MAPs were below 100 without giving his home BP meds. His potassium was 3.4 and he was given 40mEq orally. As well as 100mg thiamine. He was transferred to [facility] in [facility] to complete his TIA/CVA work up and evaluate the hematuria. Given labile BP and brain disease, he should avoid alcohol and should be offered treatment and counseling prior to discharge. Home Meds and New Rx's Prescriptions: No Action amlodipine 10 mg tablet 10 mg PO DAILY lisinopril-hydrochlorothiazide 20-25 mg tablet 1 tab PO DAILY simvastatin 40 mg tablet 40 mg PO DAILY ascorbic acid (vitamin C) 500 mg capsule 500 mg PO DAILY Discharge Instructions Activity:: Activity as Tolerated Equipment/Supplies:: No Equipment Needed Diet:: As Tolerated Discharge Orders Discharge Orders: Discharge Order (Routine); Ordered 12/17/24 Ordered By: Abhijeet Khan DS: Summary Time Spent with Patient providing and/or coordinating discharge services: Greater than 30 minutes Status at Discharge Functional status at discharge: independent ambulation Overall status at discharge: patient is progressing back to baseline Mental Status: mental status grossly normal and other (confabulation, memory deficit) Speech and Movement: speech and movement normal Mood: congruent mood and other (confabulation, memory deficit) Affect: normal affect Quality:SDOH Health Related Social Needs: Health related social needs problems related to housin g/economic circumstances (Z59.89), feeling lonely/isolated (Z60.8) Health related social needs details none, Health related social needs details: none Exam Narrative Exam Narrative: Alert and oriented to self and place, affable and cooperative. Speech is clear and fluid, though he does have some confabulatory speech. Overall he can answer questions reasonably coherently. Head atraumatic, nl ROM neck. His lungs sounded clear to auscultation. Heart sounds were regular and no significant murmur. Abdomen was soft and nontender and no HSM was palpable. The lower extremities appear well-perfused. Neurologically CN 2-12 intact, no pronator drift, he moves upper and lower extremities with symmetric strength/sensation without apparent decrement of function (though sybil 5th digit contractures). Psych Mental Status: mental status grossly normal and other (confabulation, memory deficit) Speech and Movement: speech and movement normal Mood: congruent mood and other (confabulation, memory deficit) Affect: normal affect DS: Data Vitals/I&O Vitals and I&O: Vital Signs Temperature 37.5 C 12/17/24 02:31 Temperature Source Temporal Artery Scan 12/17/24 00:25 Pulse 55 L 12/17/24 04:46 Pulse 55 L 12/17/24 04:46 Respiratory Rate 15 12/17/24 04:46 Respiratory Effort Normal 12/17/24 00:25 Respiratory Pattern Normal 12/17/24 00:25 Blood Pressure 115/94 H 12/17/24 04:46 Blood Pressure Mean 101 12/17/24 04:46 Blood Pressure Position Left Lateral 12/17/24 00:25 Pulse Oximetry 93 12/17/24 04:46 Oxygen Delivery Method Room Air 12/17/24 00:25 Oxygen Flow Rate 0 12/17/24 00:25 Pain Level 0 12/17/24 00:25 Intake & Output 12/16/24 12/16/24 12/17/24 11:59 23:59 11:59 Intake Total 318.125 / 318.125 13.333 / Output Total 600 / 600 650 / 650 Balance -281.875 / -281.875 -636.667 / -636.667 Weight 79.3 kg 74.6 kg Intake: IV 318.125 / 318.125 13.333 / Output: Urine 600 / 600 650 / 650 Other: Urine Color Light Amy Urine Appearance Clear Comment some hematuria present # Voids 3 Data Completed and Pending Labs on day of discharge: Labs from last 24 hours 12/17/24 06:45: Urine Color Yellow, Urine Clarity Sl Cloudy, Urine pH 7.5, Ur Specific Tilly 1.010, Urine Protein Trace, Urine Ketones Negative, Urine Blood Large H, Urine Nitrite Negative, Urine Bilirubin Negative, Urine Urobilinogen 1.0 H, Ur Leukocyte Esterase Negative, Urine RBC >50 H, Urine WBC 0-2, Ur Epithelial Cells Rare, Urine Crystals Negative, Urine Bacteria Rare, Urine Casts Negative, Urine Mucus Negative, Ur Culture Indicated? No, Urine Glucose Negative 12/17/24 05:37: WBC 6.29, RBC 4.82, Hgb 15.0, Hct 43.1, MCV 89, MCH 31.1, MCHC 34.8, RDW 11.8, Plt Count 224, MPV 9.8, Immature Gran % 0.3, Neutrophils % 60.9, Lymphocytes % 21.1, Monocytes % 15.7, Eosinophils % 1.4, Basophils % 0.6, Nucleated RBC % 0.0, Absolute Neutrophils 3.82, Absolute Lymphocytes 1.33, Absolute Monocytes 0.99 H, Absolute Eosinophils 0.09, Absolute Basophils 0.04, Sodium 139, Potassium 3.4 L, Chloride 103, Carbon Dioxide 29.8, Anion Gap 6.2, BUN 12, Creatinine 0.7, Est GFR (CKD-EPI 2020) 97.90, Glucose 108 H, Calcium 8.9, Total Bilirubin 1.4 H, AST 19, ALT 18, Alkaline Phosphatase 81, Total Protein 6.8, Albumin 3.7 12/16/24 23:30: Troponin I 62 12/16/24 21:18: Troponin I 19 12/16/24 20:00: Sodium 137, Potassium 3.7, Chloride 100, Carbon Dioxide 28.2, Anion Gap 8.8, BUN 15, Creatinine 0.9, Est GFR (CKD-EPI 2020) 90.74, Glucose 110 H, Calcium 9.9, Magnesium 1.9, Total Bilirubin 1.2 H, AST 24, ALT 27, Alkaline Phosphatase 107, Troponin I 6, Total Protein 8.4 H, Albumin 4.8 12/16/24 19:47: Urine Color Yellow, Urine Clarity Clear, Urine pH 7.0, Ur Specific Tilly 1.015, Urine Protein Negative, Urine Ketones Negative, Urine Blood Moderate H, Urine Nitrite Negative, Urine Bilirubin Negative, Urine Urobilinogen 0.2, Ur Leukocyte Esterase Negative, Urine RBC >50 H, Urine WBC Negative, Ur Epithelial Cells Negative, Urine Crystals Negative, Urine Bacteria Rare, Urine Casts Negative, Urine Mucus Negative, Ur Culture Indicated? No, Urine Glucose Negative 12/16/24 18:53: Sodium Cancelled, Potassium Cancelled, Chloride Cancelled, Carbon Dioxide Cancelled, Anion Gap Cancelled, BUN Cancelled, Creatinine Cancelled, Est GFR (CKD-EPI 2020) Cancelled, Glucose Cancelled, Calcium Cancelled, Magnesium Cancelled, Total Bilirubin Cancelled, AST Cancelled, ALT Cancelled, Alkaline Phosphatase Cancelled, Troponin I Cancelled, Total Protein Cancelled, Albumin Cancelled 12/16/24 18:38: WBC 8.84, RBC 5.09, Hgb 15.9, Hct 46.5, MCV 91, MCH 31.2, MCHC 34.2, RDW 11.9, Plt Count , MPV , Immature Gran % 0.2, Neutrophils % 81.1, Lymphocytes % 9.8, Monocytes % 8.0, Eosinophils % 0.6, Basophils % 0.3, Nucleated RBC % 0.0, Absolute Neutrophils 7.16 H, Absolute Lymphocytes 0.87 L, Absolute Monocytes 0.71, Absolute Eosinophils 0.05, Absolute Basophils 0.03, RBC Morphology Normal PFSH All Active Problems (Updated 12/16/24 @ 23:25 by Amarjit Louise MD) Hematuria (Acute) Alcohol abuse (Chronic) Brain TIA (Acute) Hypertensive emergency (Acute) Medical History (Updated 12/16/24 @ 23:25 by Amarjit Louise MD) Hypertension CVA (cerebral vascular accident) 2014, left MCA territory Social History Smoking/Tobacco Use Status: Never Smoking risk assessment performed?: Yes Alcohol Intake: never Housing: house Do you feel safe at home: Yes Do you feel safe in your relationship?: Yes Time Spent with Patient Time Spent with Patient: 45-69 minutes Time was spent: preparing to see the patient(eg.review tests), obtaining and/or reviewing separately otained hiistory, ordering medications,tests, procedures, referring, communicating with other health ambulatory care nurse, indepentently interpreting results, counseling the patient and care coordination
[2024-12-17] MEDS: Atorvastatin 40 MG TAB 80 MG PO (08:50)
[2024-12-17] MEDS: Potassium Chloride 20 MEQ TABCR 40 MEQ PO (08:50)
[2024-12-17] MEDS: Thiamine 100 MG TAB PO (08:51)
[2024-12-17] MEDS: Multivitamin TAB 1 TAB PO (08:51)
[2024-12-17] MEDS: Aspirin 325 MG TAB PO (08:51)
[2024-12-17] MEDS: Clopidogrel 300 MG TAB PO (08:51)
--- NOTE | 2024-12-17 09:28 | CMPROGNOTE_ITS ---
Date of service: 12/17/24 Time of Service: 09:28 Care Management Progress Note Progress Note Text Progress Note Text: Tao was admitted through the ED yesterday when his gravel machine operator noticed him to have garbled speech. He was found to be extremely hypertensive. Tao is being transferred to the [facility] today for continued care. He will transport via EMS as coordinated by the nursing geothermal powerplant supervisor. Social Determinants of Health Screening Social Determinants of health last assessed in clinic: 12/17/24 Will the Patient Participate in the Screening?: Yes Do you worry about having a steady place to live?: no Problems where you live: no known problems In the past 12 months, have you had to go without electric, gas, oil or water in your home?: no 1. Within the past 12 months, we worried whether our food would run out before we got money to buy more.: Don't know/refused 2. Within the past 12 months, the food we bought just didn't last and we didn't have money to get more.: Don't know/refused Has lack of transportation kept you from medical appointments or from doing things needed for daily living?: no Has anyone in your life made you feel unsafe or unsupported?: no How hard is it for you to pay for the very basics like food, housing, medical care, and heating? Would you say it is:: Somewhat hard Do you want help finding or keeping work or a job?: I do not need or want help If for any reason you need help with day-to-day activities such as bathing, preparing meals, shopping, managing finances, etc., do you get the help you need?: I don?t need any help How often do you feel lonely or isolated from those around you?: Rarely Do you speak a language other than [place] at home?: No Comments: pt uses [email or web address] van to attend the [facility] for transportation Health Related Social Needs Health related social needs: problems related to housing/economic circumstances (Z59.89) and feeling lonely/isolated (Z60.8) Health related social needs details: none
== END 2024-12-17 10:07 | disposition short-term general hospital (02) ==
LOC: ER 23:55 → ICU 23:58
PROVIDERS: Admitting Provider Family Medicine; Emergency Provider Emergency Medicine Emergency Medical Services; Responsible Provider Family Medicine; Visit Provider Family Medicine
DX: I66.02 Occlusion and stenosis of left middle cerebral artery (principal); I16.1 Hypertensive emergency; F10.10 Alcohol abuse, uncomplicated; R47.1 Dysarthria and anarthria; R31.9 Hematuria, unspecified; Z86.73 Personal history of transient ischemic attack (TIA), and cerebral infarction without residual deficits; I10 Essential (primary) hypertension; R29.701 NIHSS score 1
CPT/HCPCS: 00123; 36415; 36416; 70496; 70498; 80053; 82962; 93005; 96365; 96366; 99291; 74177; 81003; 81015; 83735; 84484; 85025; 93010; 99223; 99239; G0378; J2404; J3490

== ENCOUNTER 2025-07-14 11:08 | Emergency (ER) | payer OTHER, MEDICARE, SELFPAY ==
[2025-07-14] VITALS (30 sets, daily range): BP systolic 118–172; BP diastolic 69–95; PULSE 50–75; RESP 12–23; TEMP 36.5; O2SAT 90–98
--- NOTE | 2025-07-14 12:15 | DI.US_ITS ---
Exam(s) US LOWER EXTREMITY VENOUS RT EXAM: US LOWER EXTREMITY VENOUS RT CLINICAL HISTORY: swelling, eval for clot. TECHNIQUE: Lower extremity venous ultrasound performed using grayscale, color- flow, and spectral Doppler analysis. COMPARISON: No exams were available for comparison FINDINGS: The common femoral, femoral and popliteal veins demonstrate normal compressibility, augmentation, and color Doppler. The posterior tibial and peroneal veins are patent. No saphenous vein thrombosis or other superficial venous thrombosis is seen. No hematoma or Kirby's cyst is seen. There is edema in the subcutaneous fat of the lower leg. IMPRESSION: Edema.. No evidence of DVT. DATA REPOSITORY:
--- NOTE | 2025-07-14 12:15 | RT.EKG_ITS ---
APPROVED REPORT Exam: Resting ECG Reason for Exam: chf Patient Location: E HR:53 bpm ECG Measurements Heart Rate 53 AXIS AL 204 P 7 QRSd 94 QRS 11 QT 445 T 15 QTc 418 Conclusion Sinus bradycardia...rate< 60 Physician: No STEMI
[2025-07-14] MEDS: Furosemide 20 MG/2 ML VIAL IVP (12:53)
[2025-07-14 12:57] LABS: Abs Immature Grans 0.02 10^3/uL (0.0-0.06); HCT 43.7 % (40.0-50.0); HGB 15.4 g/dL (13.5-17.5); Immature Grans % 0.3 %; MCH 29.9 pg (27.0-33.0); MCHC 35.2 % (32.0-36.0); MCV 85 fL (80-95); MPV 9.4 fL (8.0-11.0); Platelet Count 243 10^3/uL (130-400); RBC 5.15 10^6/uL (4.36-5.78); RDW 12.0 % (11.8-14.1); RDW-SD 37.1 fL; WBC 7.27 10^3/uL (4.4-10.8)
[2025-07-14 13:20] LABS: ALT 19 U/L (10-49); AST 19 U/L (<34); Albumin 4.8 g/dL (3.2-5.0); Alkaline Phosphatase 84 U/L (46-116); Anion Gap 7.5 mmol/L (3-11); BUN 13 mg/dL (9-23); Bilirubin, Total 1.2 mg/dL (0.2-1.2); CO2 31.1 mmol/L (20.0-31.0); Calcium 9.4 mg/dL (8.3-10.6); Chloride 99 mmol/L (98-107); Glucose 90 mg/dL (74-106); Potassium 3.8 mmol/L (3.5-5.1); Sodium 138 mmol/L (136-145); Total Protein 7.8 g/dL (5.7-8.2); Troponin I 4 ng/L (<54)
[2025-07-14 13:27] LABS: D-Dimer 830 ng/mlFEU (<500)
--- NOTE | 2025-07-14 14:35 | W.ED.GENAD ---
Discharge Plan Disposition Patient Disposition: Home Condition: Good Discharge Details Clinical Impression: Peripheral edema Primary Care Provider: Unknown,Unknown ED Provider: Ehsan Griffith Home Meds and New Rx's Prescriptions: New furosemide [Lasix] 20 mg tablet 20 mg PO DAILY Qty: 7 0RF No Action amlodipine 10 mg tablet 10 mg PO DAILY lisinopril-hydrochlorothiazide 20-25 mg tablet 1 tab PO DAILY simvastatin 40 mg tablet 40 mg PO DAILY ascorbic acid (vitamin C) 500 mg capsule 500 mg PO DAILY Discharge Instructions Instructions: Swelling Additional Instructions: At this time you have evidence of mild swelling in your lower extremities. There does not appear to be any signs of heart attack, severe congestive heart failure, blood clot or other abnormality. Please take the Lasix as prescribed for the next week. Please avoid any salty foods, canned foods or microwavable/instant foods. Please wear the compression stockings as often as possible throughout the day. As we discussed together there was evidence of a murmur noted on your exam. Please follow-up closely with your primary care provider to schedule a nonemergent outpatient echocardiogram for further assessment. If you notice any worsening of your symptoms, or any new symptoms such as vomiting, diarrhea, fever, chills, shortness of breath, chest pain, numbness, weakness, or fainting , please return immediately to the emergency department for reevaluation. Please follow up with your primary care provider as soon as possible for reassessment and reevaluation. As always, it was a pleasure participating in your medical care today. Stand Alone Forms: Portal Information Referrals: [facility] [Outside] [facility] General Date/Time Provider Initiated Documentation: 07/14/25 11:40. HPI Narrative: 75-year-old male with past medical history of hypertension, high cholesterol, mild dementia, who presents today for evaluation of 2 weeks of swelling, much worse on the right compared to the left. No history of DVTs. No chest pain or shortness of breath, no paroxysmal nocturnal dyspnea, no pain in the calf or leg. No fever or chills. No other complaints. No history of CHF in the past. No trauma. Denies PE risk factors such as recent long car rides, immobilization, recent surgery, prior history of DVT or PE, family history of PE or DVT, morbid obesity, exogenous estrogen and smoking, hemoptysis, history of cancer. No other complaints at this time. Related Data Home Medications ?Medication ?Instructions ?Recorded ?Confirmed amlodipine 10 mg tablet 10 mg PO DAILY 12/16/24 07/14/25 ascorbic acid (vitamin C) 500 mg 500 mg PO DAILY 12/16/24 07/14/25 capsule lisinopril 20 1 tab PO DAILY 12/16/24 07/14/25 mg-hydrochlorothiazide 25 mg tablet simvastatin 40 mg tablet 40 mg PO DAILY 12/16/24 07/14/25 furosemide 20 mg tablet (Lasix) 20 mg PO DAILY #7 tabs 07/14/25 Previous Rx's ?Medication ?Instructions ?Recorded furosemide 20 mg tablet (Lasix) 20 mg PO DAILY #7 tabs 07/14/25 Allergies Allergy/AdvReac Type Severity Reaction Status Date / Time No Known Allergies Allergy Unverified 07/14/25 11:29 General Stated Complaint: Vascular ABHI: 3 Exam Narrative Exam Narrative: 1.Const: Well-nourished, Well-developed, appearing stated age 2.Eyes: PERRL, no conjunctival injection, and symmetrical lids. 3.ENT: Atraumatic external nose and ears. Moist MM. Neck: Symmetric, trachea midline, No thyromegaly. 4.CVS: +S1/S2 mild murmur present, Peripheral pulses 2+ and equal in all extremities. Brisk capillary refill in all extremities. 5.RESP: Unlabored respiratory effort. Clear to auscultation bilaterally. No wheezes rales or rhonchi 6.GI: Soft, Nontender/Nondistended, No hepatosplenomegaly. No guarding or rebound. 7.MSK: Normocephalic/Atraumatic, Extremities w/o deformity or ttp No cyanosis or clubbing, Normal movement of all extremities. +3 pitting edema in the right lower extremity, +1 in the left lower extremity. No calf tenderness. Dorsalis pedis and posterior tibial pulses +2 bilaterally. Brisk capillary refill. 8.Skin: Warm, Dry. No rashes or lesions. 9.Neuro: finish patcher II-XII grossly intact. Sensation grossly intact, no focal neurologic deficits. 10.Psych: (AAO) x3. Appropriate mood and affect Course Vital Signs Vital signs: Vital Signs Temperature 36.5 C 07/14/25 11:25 Pulse 68 07/14/25 11:25 Respiratory Rate 20 07/14/25 11:25 Blood Pressure 155/89 H 07/14/25 11:25 Pulse Oximetry 95 07/14/25 11:25 Temperature 36.5 C 07/14/25 11:25 Pulse 50 L 07/14/25 14:02 Pulse 53 L 07/14/25 14:02 Respiratory Rate 22 07/14/25 14:02 Respiratory Effort Non-Labored 07/14/25 12:43 Respiratory Depth Normal 07/14/25 12:43 Respiratory Pattern Normal 07/14/25 12:43 Blood Pressure 172/74 H 07/14/25 14:02 Blood Pressure Mean 100 07/14/25 14:02 Blood Pressure Position Sitting 07/14/25 11: Pulse Oximetry 93 07/14/25 13:16 Oxygen Delivery Method Room Air 07/14/25 11: Oxygen Flow Rate 0 07/14/25 11: Pain Level 0 07/14/25 12:43 Lab/Test Results Lab/Test Results: Laboratory Tests Range/Units 07/14/25 12:46 WBC (4.4-10.8) 10^3/uL 7.27 RBC (4.36-5.78) 10^6/uL 5.15 Hgb (13.5-17.5) g/dL 15.4 Hct (40.0-50.0) % 43.7 MCV (80-95) fL 85 MCH (27.0-33.0) pg 29.9 MCHC (32.0-36.0) % 35.2 RDW (11.8-14.1) % 12.0 Plt Count (130-400) 10^3/uL 243 MPV (8.0-11.0) fL 9.4 Immature Gran % % 0.3 Neutrophils % % 68.5 Lymphocytes % % 18.7 Monocytes % % 10.5 Eosinophils % % 1.4 Basophils % % 0.6 Nucleated RBC % (0.0-0.3) % 0.0 Absolute Neutrophils (1.2-6.7) 10^3/uL 4.99 Absolute Lymphocytes (1.2-3.4) 10^3/uL 1.36 Absolute Monocytes (0.1-0.8) 10^3/uL 0.76 Absolute Eosinophils (0.0-0.7) 10^3/uL 0.10 Absolute Basophils (0.0-0.2) 10^3/uL 0.04 D-Dimer (<500) ng/mlFEU 830 H Sodium (136-145) mmol/L 138 Potassium (3.5-5.1) mmol/L 3.8 Chloride (98-107) mmol/L 99 Carbon Dioxide (20.0-31.0) mmol/L 31.1 H Anion Gap (3-11) mmol/L 7.5 BUN (9-23) mg/dL 13 Creatinine (0.73-1.18) mg/dL 0.81 Est GFR (CKD-EPI 2020) (mL/min/1.73m2) 93.39 Glucose (74-106) mg/dL 90 Calcium (8.3-10.6) mg/dL 9.4 Total Bilirubin (0.2-1.2) mg/dL 1.2 AST (<34) U/L 19 ALT (10-49) U/L 19 Alkaline Phosphatase (46-116) U/L 84 Troponin I (<54) ng/L 4 NT-Pro-B Natriuret Pep (<300) pg/mL 70 Total Protein (5.7-8.2) g/dL 7.8 Albumin (3.2-5.0) g/dL 4.8 Medical Decision Making 75-year-old male with past medical history of hypertension, high cholesterol, mild dementia, who presents today for evaluation of 2 weeks of swelling, much worse on the right compared to the left. No history of DVTs. No chest pain or shortness of breath, no paroxysmal nocturnal dyspnea, no pain in the calf or leg. No fever or chills. No other complaints. No history of CHF in the past. No trauma. Denies PE risk factors such as recent long car rides, immobilization, recent surgery, prior history of DVT or PE, family history of PE or DVT, morbid obesity, exogenous estrogen and smoking, hemoptysis, history of cancer. No other complaints at this time. Exam demonstrates a well-appearing male, +3 to +4 pitting edema in the right lower extremity, +1 pitting edema on the left. No tenderness. No redness or erythema to suggest cellulitis or infection. No history of trauma to suggest large hematoma. Differential is highest for peripheral edema secondary to diet, but does include CHF, less likely DVT. Will get an ultrasound, evaluate for cardiac components or atrial stretch, we will give a single dose of Lasix, will monitor closely and reassess. 3:20 PM Laboratory workup has returned, no white count bandemia or left shift to suggest cellulitis or infection, D-dimer elevated at 830, ultrasound of the affected swollen extremity performed and shows no evidence of DVT. Electrolytes otherwise normal, troponin normal, proBNP normal. Suspect dietary component for his swelling, he does eat a significant amount of instant microwavable foods for breakfast and lunch. Will give compression stockings and 1 week of 20 mg daily Lasix. Additionally the patient did have a mild murmur noted on exam. While he shows no evidence of fulminant CHF, I do feel that a nonemergent outpatient echo is indicated in this situation. [facility]. Patient otherwise is stable for discharge. Plan was reviewed with brother who is at bedside and he is in agreement. Discussed red flags for which to return to. I have extensively reviewed the treatment plan and discharge instructions with the patient and their family. I have addressed all patient concerns at this time. The patient and family was made aware of what symptoms to monitor for that would warrant a return to the emergency department. Discussed the plan with the patient and family, they demonstrate verbal understanding and agreement with our assessment and plan at this time. The documentation in this chart was dictated using [employer] dictation software. Please excuse any dictation errors. No chest pain to suggest ACS, no pleuritic chest pain to suggest PE. No shortness of breath to suggest CHF exacerbation. FINDINGS: The common femoral, femoral and popliteal veins demonstrate normal compressibility, augmentation, and color Doppler. The posterior tibial and peroneal veins are patent. No saphenous vein thrombosis or other superficial venous thrombosis is seen. No hematoma or Kirby's cyst is seen. There is edema in the subcutaneous fat of the lower leg. IMPRESSION: Edema.. No evidence of DVT. Quality:SDOH Health Related Social Needs: Health related social needs house/econ circumstance lonely/isolated Health related social needs details none PFSH All Active Problems (Updated 07/14/25 @ 15:16 by Ehsan Griffith DO) Peripheral edema (Acute) Hematuria (Acute) Alcohol abuse (Chronic) Brain TIA (Acute) Hypertensive emergency (Acute) Medical History (Updated 07/14/25 @ 15:16 by Ehsan Griffith DO) Hypertension CVA (cerebral vascular accident) 2014, left MCA territory Social History Smoking/Tobacco Use Status: Never Smoking risk assessment performed?: Yes Alcohol Intake: never Housing: house Do you feel safe at home: Yes Do you feel safe in your relationship?: Yes
--- NOTE | 2025-07-15 14:58 | NUR.NOTE ---
Patient called asking about the medication he was to get today. I told him that lasix was the medication that was prescribed and that it was at [facility]. He is aware of this. Nursing Note:
--- NOTE | 2025-07-15 15:47 | NUR.NOTE ---
Nursing Note: Received call from patient requesting his new prescription for Lasix be sent to the [facility]. Message was given to Dr. Víctor Jimenes who will electronically send .
== END 2025-07-14 15:27 | disposition home or self-care (01) ==
PROVIDERS: Emergency Provider Student in an Organized Health Care Education/Training Program
DX: R60.0 Localized edema (principal)
CPT/HCPCS: 99283; 99285; 36415; 96374; 80053; 93005; 83880; 84484; 85025; 85379; 93010; 93971; J1938